=== PATIENT | female | born 1990 | race Hispanic/Latino ===

== ENCOUNTER 2018-09-23 14:45 | Observation (INO) | payer SELFPAY ==
[2018-09-23] MEDS ORDERED: Fentanyl 100 MCG/2 ML VIAL ONE (14:56)
[2018-09-23] MEDS ORDERED: Pantoprazole 40 MG VIAL ONE (14:56)
--- NOTE | 2018-09-23 15:45 | ULT ---
GALLBLADDER ULTRASOUND: 09/23/18 CLINICAL HISTORY: Right upper quadrant pain. FINDINGS: There is moderate distention of the gallbladder. No shadowing cholelithiasis or wall thickening is se en. The liver is partially obscured from view and the patient had difficulty tolerating positioning a nd breath hold for the exam which does limit the assessment. No discrete ascites is seen. Reyes's si gn is reported as positive by the groundskeeper porter. Common duct is normal measuring 3 mm. IMPRESSION: Moderate distention of the gallbladder with a positive Reyes's sign. No shadowing cholelithiasis or wall thickening. Recommend clinical correlation. Limited evaluation due to patient inability to tolerate positioning and breath hold maneuvers. POS: [facility]
[2018-09-23] MEDS ORDERED: Lorazepam 2 MG/ML VIAL ONE (15:51)
--- NOTE | 2018-09-23 16:53 | RAD ---
EXAM: Chest PA and lateral: HISTORY: Right rib pain COMPARISON: None FINDINGS: Heart size:Within normal limits. Lungs:Clear of acute process. No confluent pneumonia, overt edema, pleural effusion, or other acute process. IMPRESSION: No significant acute intrathoracic disease.
[2018-09-23] MEDS ORDERED: Methocarbamol 1 GM/10 ML VIAL SLOW IVP SCH (17:00)
--- NOTE | 2018-09-23 18:54 | PDOC.FPRHP ---
- History of Present Illness Chief Complaint: R rib pain History of Present Illness: 28yo previously healthy F presents with 1 week hx of intermittent R rib pain. 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 Since then she has had intermittent achy pain exacerbated by movement of R arm. Today she was at work and tried the same maneuver and had a recurrence of severe achy pain in the same spot. There is no association with the pain and meal times or any other activity other than RUE mvmt and deep inspiration. Pain is not radiating. No SOB, no cough, no diaphoresis. ED Course: protonix, robaxin, ativan, fentanyl - Allergies/Adverse Reactions Allergies Allergy/AdvReac Type Severity Reaction Status Date / Time Penicillins Allergy Verified 09/23/18 22:34 - Home Medications Medication Instructions Recorded Confirmed Type Acetaminophen [Tylenol Extra 1,000 mg PO Q6H PRN tab 09/24/18 Rx Strength] Ferrous Sulfate [Feosol] 325 mg PO QAM-WM #30 tab 09/24/18 Rx Ibuprofen [Motrin] 600 mg PO Q6H PRN tab 09/24/18 Rx Lidocaine 5% Patch [Lidoderm 5% 1 patch TD DAILY #14 patch 09/24/18 Rx Patch] Methocarbamol [Robaxin] 1,000 mg PO QID #28 tab 09/24/18 Rx predniSONE 40 mg PO QAM-WM #6 tab 09/24/18 Rx - History PMHx: none PSHx: c section x2 FHx: none Social: denies TAD - Review of Systems General: reports: fever/chills (no fever, just chills). denies: fatigue Eyes: denies: eye pain, vision changes ENT: denies: nasal congestion, rhinorrhea Respiratory: denies: cough, congestion, shortness of breath, exercise intolerance Cardiovascular: denies: chest pain, palpitation, edema Gastrointestinal: reports: abdominal pain. denies: nausea, vomiting, diarrhea, constipation Genitourinary: denies: incontinence, dysuria, polyuria Skin: denies: rashes, lesions Musculoskeletal: denies: pain, tenderness, stiffness Neurological: denies: syncope, seizure Psychological: denies: anxiety, depression - Vital signs BP: 110/58, Pulse: 86, Resp: 16, Temp: 98.9 (Oral), Pain: 10, O2 sat: 99 on Room Air, Time: 09/23/2018 14:48. weigh 68kg - Physical Exam Constitutional: awake, alert and oriented, other (moderate distress 2/2 pain) HEENT: EOMI, grossly normal vision, grossly normal hearing Neck: supple, trachea midline -Chest: R lower ribs: exquisitely tender to palpation, intercostal muscles feel tight Heart: RRR, normal S1/S2, other (grade 2/6 holosystolic murmur) Lungs: CTAB, no respiratory distress Abdomen: soft, other (RUQ ttp, negative rojas, no guarding, no rebound tenderness) Musculoskeletal: normal structure, normal tone Neurological: no focal deficit Skin: no rash/lesions, good turgor Heme/Lymphatic: no purpura, no petechia Psychiatric: normal mood and affect, good judgment and insight FMR H&P: Results - Labs Result Diagrams: 09/24/18 04:21 FMR H&P: A/P - Problem List (1) Intractable pain Status: Acute Code(s): R52 - PAIN, UNSPECIFIED (2) Muscle spasm Status: Acute Code(s): M62.838 - OTHER MUSCLE SPASM (3) Heart murmur Status: Acute Code(s): R01.1 - CARDIAC MURMUR, UNSPECIFIED (4) Anemia Status: Acute Code(s): D64.9 - ANEMIA, UNSPECIFIED - Plan Intractible pain 2/2 R intercostal muscle spasm A- Pt s/p fentanyl and robaxin in ED with some improvement. P- continue robaxin -schedule tylenol/ibuprofen, will start tramadol if pain not controlled -4 day course of prednisone -heat pad BID Normocytic anemia A- no hx of anemia, normocytic but could be mixed etiology P- iron, TIBC, ferritin, B12, folate murmur A- incidental finding on P/E, Pt has no cardiovascular compromise P- recommend f/u outpt, possible echo if murmur persists R adnexal cyst A- incidental finding on Abd CT, likely just an involuting folicle P- Will recommend pt to get pelvic US outpt in 6-8 weeks per radiology recommendations Elevated d-dimer A- ddimer 0.94 in ED but pt has WELLS score of zero. Low risk for PE/DVT P- no further assesment necessary at this time, monitor vitals CODE: FULL Addendum - Attending - Attending Attestation Date/Time: 09/23/18 [id number] I personally evaluated the patient and discussed the management with Dr. Joyner I agree with the History, Examination, Assessment and Plan documented above with any addition or exceptions noted below. Muscle spasm. Offered patient d/c to home. Patient nervous pain would not be controlled with PO meds. Would like to stay overnight for monitoring and possible IV medications for intractable pain. Schedule antiinflammtory, muscle relaxer, and pain medication. Add heat therapy. Minimize movement. PT as outpatient recommended. Consider brace and tens unit. OMT recommended. Shahid
[2018-09-23] MEDS ORDERED: Melatonin 3 MG TAB PO PRN (22:12)
[2018-09-23] MEDS ORDERED: Ondansetron ODT 4 MG TAB PO PRN (22:12)
[2018-09-23] MEDS ORDERED: Acetaminophen 500 MG TAB PO PRN (22:12)
[2018-09-23] MEDS ORDERED: Calcium Carbonate 500 MG ChewTAB PO PRN (22:12)
[2018-09-23] MEDS ORDERED: Ibuprofen 600 MG TAB PO PRN (22:12)
[2018-09-23] MEDS ORDERED: predniSONE 20 MG TAB PO SCH (22:15)
[2018-09-23 22:40] VITALS: BMI 27.1
[2018-09-24] MEDS ORDERED: Methocarbamol 500 MG TAB PO SCH ×2 (01:00→09:00)
[2018-09-24 04:43] LABS: #Eosinphils 0.1 thou/uL (0.0-0.7); #Lymphocytes 0.8 thou/uL (1.20-3.40); #Monocytes 0.2 thou/uL (0.11-0.59); #Neutrophils 6.1 thou/uL (1.40-6.50); %Basophils 0.2 % (0.0-1.0); %Eosinophils 1.9 % (0.0-10.0); %Lymphocytes 11.3 % (21.0-51.0); %Monocytes 2.2 % (0.0-10.0); %Neutrophils 84.5 % (42.0-75.0); Hemoglobin 11.3 g/dL (12.0-16.0); Mean Corpuscular Hemoglobin 26.3 pg (27.0-31.0); Mean Corpuscular Volume 82.4 fL (78.0-98.0); Mean Platelet Volume 7.5 fL (7.4-10.4); Platelet Count 314 thou/uL (130-400); RBC Distribution Width 15.8 % (11.5-14.5); White Blood Cell (WBC) Count 7.2 thou/uL (4.8-10.8)
[2018-09-24 05:05] LABS: Iron 27 ug/dL (50-170); Iron Binding Capacity, Total 423 mcg/dL (265-497)
--- NOTE | 2018-09-24 05:32 | PDOC.FM ---
- Subjective Subjective: Ms Crocker is tolerating pain better with medications. Pain now 5/10, constant, and worse with movement. She states it does feel like pain is internal vs MSK. She endorsed tenderness to palpation over ribs. - Objective Vital Signs & Weight: Vital Signs (12 hours) Temp Pulse Resp BP Pulse Ox 09/24/18 04:50 97.4 F L 78 95/54 L 99 09/23/18 22:00 98.3 F 77 20 111/67 99 Weight Weight 67.812 kg Result Diagrams: 09/24/18 04:21 Phys Exam - Physical Examination Constitutional: NAD HEENT: PERRLA, moist MMs Neck: no JVD Respiratory: no wheezing, no rales, no rhonchi, clear to auscultation bilateral Cardiovascular: RRR Gastrointestinal: soft, no distention, positive bowel sounds + rojas's sign, tenderness over R ribcage on light palpation Musculoskeletal: no edema, pulses present Neurological: non-focal, normal sensation, moves all 4 limbs Psychiatric: A&O x 3 Dx/Plan (1) Anemia Code(s): D64.9 - ANEMIA, UNSPECIFIED Status: Acute (2) Heart murmur Code(s): R01.1 - CARDIAC MURMUR, UNSPECIFIED Status: Acute (3) Intractable pain Code(s): R52 - PAIN, UNSPECIFIED Status: Acute (4) Muscle spasm Code(s): M62.838 - OTHER MUSCLE SPASM Status: Acute - Plan Plan: # Intractible pain 2/2 R intercostal muscle spasm Pt s/p fentanyl and robaxin in ED with some improvement. RUQ u/s revealed mild distention of gallbladder w/o cholelithiasis. LFT's WNL. - continue robaxin - schedule tylenol/ibuprofen, will start tramadol if pain not controlled - 4 day course of prednisone - heat pad BID - Senior Firewall Engineer on if worsening symptoms, fever, chills to come back to ED. # Normocytic anemia no hx of anemia, normocytic but could be mixed etiology. Iron 27, TIBC 423, Ferr 5.03 - Pending b12, folate - start ferrous sulfate as outpt and follow up. # murmur incidental finding on P/E, Pt has no cardiovascular compromise - recommend f/u outpt, possible echo if murmur persists # R adnexal cyst incidental finding on Abd CT, likely just an involuting folicle - Will recommend pt to get pelvic US outpt in 6-8 weeks per radiology recommendations # Elevated d-dimer ddimer 0.94 in ED but pt has WELLS score of zero. Low risk for PE/DVT - no further assesment necessary at this time, monitor vitals CODE: FULL Fluids: PO intake Diet: Regular VTE Prophylaxis: Lovenox Disp: discharge likely as pain is controlled and appears to be MSK in nature.
[2018-09-24 05:35] LABS: Folate (Folic Acid) 8.1 ng/mL (7.0-31.4)
[2018-09-24] MEDS ORDERED: predniSONE 20 MG TAB PO SCH (08:00)
[2018-09-24 08:23] VITALS: BP 102/58; TEMP 98.7
[2018-09-24] MEDS ORDERED: Lidocaine 5% Patch TD SCH (09:00)
[2018-09-24] MEDS ORDERED: Enoxaparin Sodium 40 MG/0.4 ML SYRINGE SC SCH (09:00)
--- NOTE | 2018-09-24 11:21 | PRG ---
DATE OF SERVICE: 09/24/2018 I have examined this patient and discussed her case with Dr. Patrice Smith and agree with his assessment plan. Ms. Crocker was admitted with an intractable pain due to a pulled muscles in the right rib cage that occurred several days ago and recently exacerbated. This morning, she looks and feels better. We have, however, found that she has a mild anemia with a hemoglobin 11.3, hematocrit 35.4, and MCV of 82. Her ferritin level is only 5. Her iron is low at 27. Her TIBC is elevated at 423 of these all of course consistent with iron-deficiency anemia. She does admit to having heavy irregular periods and this should be evaluated further as an outpatient. Her pain is better and she will be discharged later today. She has also been instructed to begin some oral iron, pending further workup of her abnormal uterine bleeding. Job ID: [id number]
[2018-09-24] MEDS ORDERED: Lidocaine Patch Removal 1 EACH TOP SCH (21:00)
[2018-09-25] MEDS ORDERED: Ferrous Sulfate 325 MG TAB PO SCH (08:00)
--- NOTE | 2018-09-26 11:03 | DIS ---
DATE OF ADMISSION: 09/23/2018 DATE OF DISCHARGE: 09/24/2018 RESIDENT: Patrice Smith DO ADMITTING PHYSICIAN: Afsaneh Moy MD DISCHARGE PHYSICIAN: Ulices Staples MD CONSULTS: None. PROCEDURES: 1. Abdominal ultrasound on 09/23/2018 revealed moderate distention of the gallbladder with positive Reyes sign. No shadowing cholelithiasis or wall thickening. Radiology recommended clinical correlation. Limited evaluation due to the patient's inability to tolerate positioning and breathhold maneuvers. 2. Chest x-ray on 09/23/2018 revealed no significant acute intrathoracic disease. PRIMARY DIAGNOSES: 1. Intractable pain secondary to right intercostal muscle spasm. 2. Normocytic anemia. 3. Systolic murmur. 4. Right adnexal cyst/mass. 5. Elevated D-dimer. SECONDARY DIAGNOSIS: None. DISCHARGE MEDICATIONS: 1. Tylenol 1 g p.o. q.6 p.r.n. 2. Ferrous sulfate 325 mg p.o. daily. 3. Ibuprofen 600 mg p.o. q.6 p.r.n. 4. Lidocaine 5% patch daily. 5. Robaxin 1000 mg p.o. q.i.d. 6. Prednisone 40 mg p.o. DISCONTINUED MEDICATIONS: None. HISTORY OF PRESENT ILLNESS AND HOSPITAL COURSE: Ms. Crocker is a 28-year-old previously healthy female who presented with 1-week history of intermittent right rib pain. She reported that 1 week ago she was at work and was reaching for heavy product with her right arm when she felt muscle spasms on the right side of her lower thorax. Since then she had intermittent achy pain exacerbated by right arm movement. On 09/23, she tried the same maneuver and had recurrence of the severe achy pain in the same spot. There was no association with the pain or meals or any other activity other than right upper extremity movement and deep inspiration. Her pain did not radiate. She denied shortness of breath, cough, or diaphoresis. In the ED, she was given Protonix, Robaxin, Ativan, fentanyl for the pain. She had a chest x-ray performed, which was within normal limits and a right upper quadrant ultrasound that revealed mild dilation of the gallbladder. Her exam was tender over the right thorax with mild palpation. She did have a positive Reyes sign, but this is more likely due to the rib pain and not her gallbladder. She did not have an elevated white blood cell count. Consequently, she was found to have a hemoglobin of 11.3. Due to her story and presentation, she will likely having right upper quadrant pain secondary to an intercostal muscle spasm and somatic dysfunction. After a course of medication, she said that the pain was better controlled, so she was discharged with scheduled Tylenol, ibuprofen, Robaxin, lidocaine patch, and a 4- day course of prednisone. Incidental findings on her stay showed that she had normocytic anemia with a hemoglobin of 11.3. She was started on iron sulfate during the admission. Iron was 27, TIBC 423, ferritin 5.03, vitamin B12 665, folate 8.10. She was also found to have a right adnexal mass on her ultrasound, so she was instructed to follow up outpatient for further evaluation. Radiology noted that it was most likely a follicule or cyst. Also found to have a new murmur. At this time, we did not feel the need to work it up, but I advised her to follow up outpatient for possible echo. ED did order a D-dimer, which was found to be 0.94, but with further assessment and calculating her Wells score of 0, we did not suspect PE or DVT, so we did not do any further workup. DISPOSITION: Stable. DISCHARGE INSTRUCTIONS: 1. Location, [facility]. 2. Diet, no restrictions. 3. Activity, ad vesta. 4. Followup, follow up with primary care physician in the outpatient setting in 5 to 7 days or if pain does not resolve. Job ID: [id number] MTDD
== END 2018-09-24 11:09 | disposition home or self-care (01) ==
LOC: ERS 14:45 → 2SW 18:54
PROVIDERS: ADMIT Family Medicine; ATTEND Family Medicine
DX: M62.838 Other muscle spasm (principal); D64.9 Anemia, unspecified; R01.1 Cardiac murmur, unspecified; N83.8 Other noninflammatory disorders of ovary, fallopian tube and broad ligament; R79.89 Other specified abnormal findings of blood chemistry; Z88.0 Allergy status to penicillin
CPT/HCPCS: 36415; 71046; 76705; 82607; 82728; 82746; 83540; 83550; 85025; 85379; 96372; 96374; 96375; C9113; G0378; J1650; J2060; J2800; J3010; J7512; Q0162